=== PATIENT | female | born 1955 | race Caucasian/White ===

== ENCOUNTER → 2021-09-21 14:08 | Outpatient (CLI) | payer MEDICARE, OTHER, SELFPAY ==
[2021-09-21 14:44] LABS: Appearance Urine UA CLEAR; Bilirubin Urine UA NEGATIVE (NEGATIVE); Color Urine UA YELLOW; Glucose Urine UA NEGATIVE (Negative); Ketones Urine UA NEGATIVE (NEGATIVE); Leukocyte Esterase Urine UA NEGATIVE (NEGATIVE); Nitrite Urine UA NEGATIVE (Negative); Occult Blood Urine UA NEGATIVE (Negative); Protein Urine UA NEGATIVE (Negative); Specific Gravity Urine UA 1.015 (1.000-1.035); Urobilinogen Urine UA 0.2 E.U./dL (0.2)
[2021-09-21 14:49] LABS: Bacteria Urine None Seen; Culture Indicated Urine Cult Not Indicated; RBC Urine None Seen (0-5/HPF); Urine Comments Microscopic Normal; WBC Urine None Seen (0-5/HPF)
[2021-09-21 15:06] LABS: Add Manual Diff / Slide Review NO; Basophils Absolute Auto 100 /uL (0-100); Basophils Percent Auto 0.7 % (0-2); Eosinophils Absolute Auto 100 /uL (0-450); Eosinophils Percent Auto 1.2 % (2-4); Hemoglobin 13.6 g/dL (12.0-16.0); Lymphocytes Absolute Auto 1400 /uL (1100-4500); Lymphocytes Percent Auto 15.6 % (25-40); Mean Corpuscular HGB Conc 34.1 % (30-36); Mean Corpuscular Hemoglobin 31.2 PG (26-34); Mean Corpuscular Volume 91.6 fL (80-100); Monocytes Absolute Auto 400 /uL (0-900); Monocytes Percent Auto 4.2 % (3-14); Neutrophils Absolute Auto 6900 /uL (1500-7000); Neutrophils Percent Auto 78.3 % (50-75); Platelet Count 291 X10^3/uL (150-400); Red Blood Cell Count 4.36 X10^6/uL (4.0-5.2); Red Cell Distribution Width 13.4 % (11.6-14.8); White Blood Cell Count 8.9 X10^3/uL (4.5-11.0)
[2021-09-21 15:19] LABS: Hemoglobin A1C% w Est Avg Glu 4.9 % (4.0-6.0)
[2021-09-21 15:45] LABS: BUN Creatinine Ratio 12.4 (6-22); Blood Urea Nitrogen 12 mg/dL (7-17); Calcium 9.7 mg/dL (8.4-10.2); Carbon Dioxide 31 mmol/L (22-32); Chloride 104 mmol/L (98-107); Estimated Glomerular Filt Rate 57.6 mL/min (>60); Glucose 106 mg/dL (80-110); HEMOLYSIS < 15 (0-50); Potassium 4.7 mmol/L (3.4-5.1); Sodium 141 mmol/L (137-145)
== END ==
PROVIDERS: PCP Physician Assistant Medical; Referring Provider Orthopaedic Surgery Orthopaedic Surgery of the Spine; Visit Provider Orthopaedic Surgery Orthopaedic Surgery of the Spine
DX: Z01.818 Encounter for other preprocedural examination (principal); Z01.812 Encounter for preprocedural laboratory examination; R73.9 Hyperglycemia, unspecified; N39.0 Urinary tract infection, site not specified
CPT/HCPCS: 36415; 80048; 81001; 83036; 85025; 93005

== ENCOUNTER → 2021-10-15 09:29 | Outpatient (CLI) | payer MEDICARE, OTHER, SELFPAY ==
[2021-10-15 12:03] LABS: COVID19 -Nasal RAPID Negative (Negative)
== END ==
PROVIDERS: PCP Physician Assistant Medical; Visit Provider Nurse Practitioner Family
DX: Z20.822 Contact with and (suspected) exposure to COVID-19 (principal)
CPT/HCPCS: 87635

== ENCOUNTER 2021-10-18 09:17 | Inpatient (IN) | payer MEDICARE, OTHER, SELFPAY ==
[2021-10-05 09:37] VITALS: BMI 22.1
[2021-10-18] VITALS (12 sets, daily range): BP systolic 118–156; BP diastolic 66–111; PULSE 70–91; RESP 11–19; TEMP 36.3–37.7; O2SAT 92–100; BMI 22.1
[2021-10-18] MEDS: ACETAMINOPHEN 325 MG TABLET 975 MG PO (10:05)
[2021-10-18] MEDS: LACTATED RINGERS 1,000 ML 42 ML IV ×2 (10:06→14:37)
[2021-10-18] MEDS: CEFAZOLIN 2 GM/20 ML SYRINGE IV (11:48)
--- NOTE | 2021-10-18 12:24 | SUR.OPER ---
Prone on spine table, head in foam head support, padded chest and pelvic supports, gel pad at knees, lower legs supported by pillows; nipples, genitalia and toes free of pressure, arms secured on foam padded arm boards at <90 degrees abduction. Tape over blanket at thigh secured to table.
[2021-10-18] MEDS: BUPIVACAINE LIPOSOME 266 MG/20 ML VIAL INJ (12:32)
[2021-10-18] MEDS: BUPIVACAINE 0.25% (PF) 30 ML, EPINEPHrine 0.3 MG INJ (12:33)
--- NOTE | 2021-10-18 14:21 | PM.OP.1 ---
Operative Date/Time/Diagnoses Date of procedure: 10/18/21 Time of procedure: 12:00 Pre-op diagnosis: 1. L4-5 spinal stenosis with neurogenic claudication 2. L4-5 spondylolisthesis Post-op diagnosis: same Procedure & Clinicians Procedure: 1. L4-5 Postero-lateral and posterior interbody fusion 2. L4-5 interbody cage placement. 3. L4-5 decompressive laminectomy with bilateral facetecomies 4. L4-5 Posterior non-segmental instrumentation 5. [place] of bone marrow from iliac crest 6. Utilization of microsurgical technique and operating microscope Same procedure as scheduled: Yes Indications: Patient has been having chronic back pain and worsening lumbar radiculopathy. Patient failed multiple conservative management with worsening pain weakness and numbness in her lower extremity. Patient has been having difficulty performing activity of daily living. After discussing risks benefits of treatment options, patient elected proceed with surgery. Surgeon: Chapo Bell Account Receivable Associate: Anayeli Lewis Click Yes if Unassisted: Yes Anesthesia Type: General Operative Notes Closure Type: primary Specimen(s): none sent Prosthetic devices, grafts, tissues, transplants, or devices: Globus revolve screws, Rise cage Estimated Blood Loss (mL): 50 Blood products transfused: none Procedure in detail: Patient was seen in the preoperative area. Risks and benefits of the surgery was discussed with the patient. Informed consent was obtained from the patient and placed in the chart. Surgical site was marked. Patient was taken to the operative room. General anesthesia was administered. Prophylactic antibiotic was given to the patient less than 30 min before the incision was made. Patient was placed into a prone position on the [place] table. Patient's back was then prepped and draped in the sterile fashion. Time-out was performed at this time. Using AP and lateral C-arm imaging the interval between L4-5 was identified and marked on patient's back. A 2 inch incision 2 in from midline was made on the left side first. The fascia was incised in line with skin incision. Globus MARS retractors was placed inside the incision and docked onto the L4 lamina. Using microsurgical technique and operating microscope, a L4 laminectomy and L4-5 facetectomy was performed using a [place] rongeur. The disc space at L4-5 was identified. And a total diskectomy was performed at L4-5 level. The endplates were decorticated using a rasp and shaver. The total diskectomy and decortication was performed at L4-5 level in order to to accomplish a L4-5 fusion. The local bone from the laminectomy and facetectomy was saved for local bone grafting. After the total diskectomy and decortication was completed, Trifecta bone graft material was combined with local bone that was harvested earlier. At this time, a separate skin is incision was made over the iliac crest. A Jamshidi needle was inserted into the iliac crest through a separate skin incision. 5 cc of bone marrow aspiration was obtained through the separate skin incision using a Jamshidi needle from the iliac crest. The bone marrow aspiration was combined with local bone and the Trifecta bone grafting material. The bone grafting material was placed into the L4-5 interbody space along with a expandable cage. The cage was expanded to its maximum height using the torque limiting screwdriver. At this time a mirror image incision was made on the right side. The fascia was incised in line with the skin incision. Globus MARS retractor was inserted and docked onto the L4-5 posterolateral gutter. Using the power drill, posterior-lateral decortication was performed at L4-5 level until bleeding cortical bone was identified. The remaining bone grafting material was placed into the L4-5 posterior lateral gutter he order to accomplish posterolateral fusion at the L4-5 level. Using the double C-arm technique, pedicle screws were placed into the L4-5 pedicles bilaterally. This was done by placing the Jamshidi needle into the pedicles, then placing the guidewires over the Jamshidi needle, and finally placing the cannulated screws over the guidewires bilaterally. After the pedicle screws were placed, 2 titanium rods was locked into the heads of the pedicle screws using locking caps and torque limiting screwdriver. After all the hardware was placed, and confirmed with AP and lateral C-arm imaging, the wound was then irrigated with sterile normal saline and packed with Ray-Dario gauze for 3 min to accomplish hemostasis. After the gauze was removed the deep fascia was closed with #1 Vicryl suture. The subcutaneous layer was closed with 2-0 Vicryl. The skin was closed with skin farshad. Patient tolerated the procedure well. There were no complications. Complications: none Post-operative Condition: stable Disposition: PACU Plan for aftercare: Admit to inpatient hospital
[2021-10-18] MEDS: OXYCODONE IR 5 MG TABLET PO (15:15)
[2021-10-18] MEDS: hydrOXYzine pamoate 25 MG CAPSULE PO ×2 (15:16→20:39)
[2021-10-18] MEDS: SODIUM CHLORIDE 0.9% 1,000 ML 100 ML IV (16:12)
[2021-10-18] MEDS: DOCUSATE 100 MG CAPSULE PO (20:39)
[2021-10-18] MEDS: OXYCODONE IR 5 MG TABLET 10 MG PO (20:39)
[2021-10-18] MEDS: SENNOSIDES 8.6 MG TABLET 17.2 MG PO (20:39)
[2021-10-18] MEDS: CEFAZOLIN 2 GM/20 ML SYRINGE 1 GM IV (20:39)
[2021-10-19] MEDS: SODIUM CHLORIDE 0.9% 1,000 ML 100 ML IV (02:09)
[2021-10-19] MEDS: CEFAZOLIN 2 GM/20 ML SYRINGE 1 GM IV (03:52)
[2021-10-19] MEDS: OXYCODONE IR 5 MG TABLET 10 MG PO ×3 (04:01→11:53)
[2021-10-19 06:10] VITALS: BP 136/73; PULSE 82; RESP 18; TEMP 36.8; O2SAT 98
[2021-10-19] MEDS: hydrOXYzine pamoate 25 MG CAPSULE PO (06:19)
--- NOTE | 2021-10-19 07:29 | P.PN_ITS ---
Subjective Subjective Date Patient Seen: 10/19/21 Time Patient Seen: 07:29 Interval history: Pain is mild at rest. Patient has severe pain with movement. She has not yet had physical therapy. She does have her granddaughter home to assist her. Denies fever or chills. No nausea or vomiting. Exam Vital Signs (past 8 hours): - 10/19/21 06:10 Temperature 98.2 F Pulse Rate 82 Respiratory Rate 18 Blood Pressure 136/73 Pulse Oximetry 98 Oxygen Delivery Method Room Air Oxygen Flow Rate 0 Narrative Exam Narrative: 65-year-old female resting comfortably in bed in no apparent distress. Motor functions intact bilateral lower extremities. Sensation grossly intact to light touch bilateral lower extremities. [facility] Medical History Sciatica Spinal stenosis Spondylolisthesis Surgical History History of bilateral tubal ligation History of lumbar fusion (2000) Hx of arthroscopy of left knee Hx of arthroscopy of right knee Social History household members: children Smoking Status: Never smoker alcohol intake: current Assessment & Plan Post-op Postoperative Procedures: Procedures Operation Date: 10/18/21 10:45 Actual Procedure Side Surgeon p L4-5 TLIF Chapo Bell MD Postoperative day: 1 Postoperative status: marginal pain control Postoperative plan narrative: Mobilize with physical therapy. Limit bending, twisting, lifting Multimodal pain management Disposition possible home today versus tomorrow Quality VTE Deep Vein Thrombosis/Pulmonary Embolism Present on Admission: No
[2021-10-19 07:41] VITALS: BP 128/70; PULSE 69; RESP 16; TEMP 36.6; O2SAT 100
[2021-10-19] MEDS: LORATADINE 10 MG TABLET PO (08:49)
[2021-10-19] MEDS: DOCUSATE 100 MG CAPSULE PO (08:49)
--- NOTE | 2021-10-19 09:05 | CM.DANOTE ---
DCP: Case received, EMR reviewed and met with patient. Introduced self and role. Was able to obtain information regarding patient's baseline activity status prior to surgery, as well as her current living situation. DCP assessment completed with information currently available. Patient is a 65 year old female who admitted yesterday morning to the care of the orthopedic team. PCP: Dr. Caba. Payer: confirmed: Medicare/[employer]. Patient came to the hospital via private vehicle for a surgical procedure. Patient had translaminar interbody fusion/Laminotomy. Patient has history of chronic back issues, did have L5-S1 surgery in 2000. Patient has history of spinal stenosis. Met with patient in her room. She is alert and oriented, and she was sitting up in her chair. Confirmed with patient that she resides outside of [place], and her grand daughter, Dominique, will be staying with her for assistance. Patient is active at her baseline, goes to the gym to work out. She drives, and uses no DME equipment. P: DCP to continue to follow for any needs. She will be working with P.T/O.T. today. She should be able to go home when she is deemed medically stable. Park Mcghee RN/Director Long Term Care Discharge Planning/Care Management CM Discharge Assessment Start: 10/19/21 09:03 Freq: Status: Active Protocol: Document 10/19/21 09:03 (Rec: 10/19/21 09:05 [id number]) Discharge Planning Assessment Assigned Mobile Disc Jockey Park Mcghee RN/Director Long Term Care Advance Directives? No History Provided By Patient,Medical Record Prior Living Arrangements House Household Members children Comment Patient's Dominique min, is staying with her. Type of transporation used prior to Drives own vehicle admit Independent with ADL's Yes Is patient alert and oriented? Yes Caregiver for Another No Barriers to Discharge No Discharge Plan Home Transportation Arrangement Family Referrals Initiated None needed Whiteboard Updated in Patient Room with Yes name and ext. # of Mobile Disc Jockey Review Status In Process Next Review Type Continued Stay Review Pre-Anesthesia Assessment Start: 10/05/21 09:37 Freq: Status: Active Protocol: Document 10/05/21 09:37 CAB (Rec: 10/05/21 10:24 CAB [id number]) Pre-Anesthesia Assessment Patient Information Reviewed Via Phone Assessment Assessment Completed With Patient H&P Completed Within 30 Days Yes Diagnostic Results BMP/CMP,CBC,EKG,Urinalysis Comment Labs/EKG @ 09/21/21, COVID screen @ 10/15/21 Primary Care Provider None Seen Specialist in Last 12 Months Yes Specialist Seen Orthopedist Primary Language Thai Convenience Store Manager Required No Height 5 ft 6 in Weight 137 lb Body Mass Index (BMI) 22.1 Hearing Ability Normal Visual Assist Magnifying Glass Dentition Type Teeth, Natural Present Barriers to Learning None Hx Anesthesia Reactions No Hx Family Anesthesia Reaction No Hx Malignant Hyperthermia No Hx Blood Transfusions No Anesthesia Review Requested No alcohol intake current alcohol intake frequency 0-2 drinks per day Smoking Status Never smoker Substance Use Type marijuana Comment Pt advised not to smoke marijuana 24 hours prior to surgery Pain Present Pain Reported Musculoskeletal Symptoms Abnormal Gait,Back Pain, Difficulty Walking,Radiating Pain into Limb History of Falling (Recent or History of No ) Patient is completely paralyzed or No completely immobile Mental Status Oriented to own ability Is patient on oxygen? No Does patient have CHILEL/SOB No Hx Sleep Apnea No Currently Taking a Beta Rolando No Hx Chest Pain No Hx SOB No Hx Syncope or Dizziness No Anti-Coagulant Therapy No Has a Cable Assembler No Cardiac Testing No Hx Pacemaker/ICD No Pacemaker Rep Required? No Cardiac Clearance Received Not Applicable Diet Type At Home Regular dysphagia No Gastrointestinal Symptoms Constipation Urinary Catheter Present No Hx Urinary Self Catheterization No Diabetes No HgbA1C 4.9 Date 09/21/21 Patient No Lactating No Hx Drug Resistant Organism No Presence of External or Internal Medical Yes: Lumbar fusion w/cage Devices Have you had any close contact with No someone diagnosed with COVID-19? Received a COVID vaccine? No Marital Status / Lives With children Prior Living Arrangements House Number of Floors (Floors) One Floor Support System Child/Children Does the Patient Have Assistance After Yes Surgery Patient Discharge Plan Description Return Home Comment Pt advised 1 day length of stay per surgeon Feels Safe in Current Environment Yes Been Physically Hurt or Threatened By a No Person in Current Environment Do you have thoughts of harming yourself None or others? Are you currently considering suicide? No Do you have a plan to hurt yourself or No Plan others? Do You Have Any Spiritual Beliefs That No May Affect Your HC Choices? Do You Have Any Cultural Practices That No May Affect Your HC Choices? Comment Liam Who Can We Speak to About Patient's Care Family, friends Identifying Code for Release of Patient Declines to issue Information Health Care Proxy/Next of Kin Yolis (Daughter) Health Care Proxy Emergency Contact Name Yolis (Daughter) Emergency Contact Advance Directives? No Power of Web Content Writer No PAC Instructions Durable medical equipment, Medications to take/avoid, Nasal antibiotic,No ETOH/ petroleum product on skin DOS, NPO,Post-op transportation,Pre -surgical wash,Sturdy shoes/ comfortable clothes,Do not bring valuables and remove jewelry
--- NOTE | 2021-10-19 09:40 | PT.IIE ---
Current Diagnoses Spondylolisthesis, lumbar region (10/18/21) Spinal stenosis, lumbar region with neurogenic claudication (10/18/21) Arthrodesis status (10/18/21) Surgery Performed Operation Date: 10/18/21 10:45 Actual Procedures p L4-5 TLIF - Chapo Bell MD Medical History (Last Reviewed 10/19/21 @ 07:30 by Saad Serrano PA-C) Sciatica Spinal stenosis Spondylolisthesis Physical Therapy Inpatient Evaluation/Re-Eval M1 PT/OT-IP Prior Functional Status Start: 10/19/21 11:52 Freq: NEEDED Status: Active Protocol: Document 10/19/21 09:40 AB (Rec: 10/19/21 12:04 AB [email or web address]) Medical Review Prior Functional Status Medical History Reviewed Yes Communication able to make needs known Mobility and Gait pt stated that she is independent with all mobilities and ambulation without AD Social History Household Members children Living Arrangements House Number of Floors (Floors) Two Floors Number of Stairs To Enter/Railing? pt stays on main level of the house 4 steps without rails to enter the house Home Environment Standard Height Toilet,Tub/ Shower Home Equipment Front Wheel Walker,Straight Cane,Raised Toilet Seat w/ Armrests Additional Social History Comment pt stated that her granddaugther and granddaugther's BF can assist her at home when they are around but will mostly be by herself when they go to work M2 PT-IP Current Condition Start: 10/19/21 11:52 Freq: NEEDED Status: Active Protocol: Document 10/19/21 09:40 AB (Rec: 10/19/21 12:04 AB [email or web address]) Physical Therapy Current Condition Current Condition Evaluation Date 10/19/21 Treatment Diagnosis s/p L4-5 TLIF; difficulty in walking Onset Date 10/18/21 M3 PT-IP Subjective Start: 10/19/21 11:52 Freq: NEEDED Status: Active Protocol: Document 10/19/21 09:40 AB (Rec: 10/19/21 12:04 AB [email or web address]) Subjective Physical Therapy Visit Type Type Initial Evaluation Visit Start Time 09:40 Visit Stop Time 10:10 Total Visit Minutes 30 Number of EAR MOLD LABORATORY TECHNICIAN Visits 0 Physical Therapy Visit Comments Patient Comments agreeable to do PT Therapy Pain Assessment Pain When Pain Assessed At Rest Pain Present Pain Present Pain Reported Location back Intensity 2 Scale Used Numeric (0 - 10) Pain Management Techniques Apply Cold,Distraction, Modification of Treatment,Re- positioning,Timing of Activity with Medications M4 PT-IP Mobility and Gait Start: 10/19/21 11:52 Freq: NEEDED Status: Active Protocol: Document 10/19/21 09:40 AB (Rec: 10/19/21 12:04 AB [id number]) PT-Bed Mobility Assessment Rolling Type of Rolling Log Rolling Level of Assist Standby Assistance Supine to Sit Supine to Sit Standby Assistance PT-Transfer Assessment Sit to and From Stand Sit to and from Stand Standby Assistance,1 Person Assistance Equipment Transfer Assistive Device Gait Belt,Front Wheeled Walker Orthotic/Prosthetic Devices or Brace: No Transfers Transfer Destination Bed Transfer Technique ambulated Transfer Ability Level of Assist Standby Assistance,Contact Guard Assistance,1 Person Assistance,Use of Upper Extremities Comments Mobility Comments educated pt on back precautions and log roll bed mobility. pt completed supine to sit SBA. completed sit to stand CGA and ambulated in room ~ 30 ft using FWW CGA and sat on chair. educated pt on sit to stand technique. completed sit to stand SBA and ambulated in the hallway ~150 ft using FWW SBA. completed up/down stairs using SPC CGA. repeated x 2. pt ambulated back to the room using FWW SBA . agreed to sit on chair. positioned on chair. call light and table placed within reach. Gait Assessment Gait Gait Assistance Required: Standby Assistance,Contact Guard Assist Distance (Feet) 150 Able to Maintain Weight Bearing Status Yes During Gait Assistive Devices Assistive Device Gait Belt,Front Wheeled Walker Orthotic/Prosthetic Devices or Brace: No Gait Deviations General Gait Pattern Antalgic,Decreased Stride Length,Decreased Feet Clearance Factors Limiting Gait Function Factors Limiting Gait Function Decreased Activity Tolerance, Decreased Strength,Limited Range of Motion,Pain,Poor Balance Stair Climbing Assessment Evaluation Level of Assist On Stairs Contact Guard Assistance Devices Stair Climbing Assistive Devices Straight Cane Technique/Endurance Stair Climbing Direction Ascend and Descend Stair Climbing Technique Step to Step Number of Steps Climbed 3 Query Text: Stair Climbing Set # Repetitions (reps) 2 PT-Balance Assessment Sitting Balance and Reactions Static Sitting Balance Ability Good Dynamic Sitting Balance Ability Good Standing Balance and Reactions Static Standing Balance Ability Fair Dynamic Standing Balance Ability Fair Device Used FWW M5 PT-IP Objective Assessments Start: 10/19/21 11:52 Freq: NEEDED Status: Active Protocol: Document 10/19/21 09:40 AB (Rec: 10/19/21 12:04 AB [id number]) Orientation Orientation/Cognition Level of Alertness Alert Orientation Name,Age,Birthday,Month,Date, Year,Day of Week,Place, Situation Language Function Ability No Deficits Noted Safety Awareness Understands Safety Issues Memory Description No Deficits Noted Gross Range of Motion Lower Extremity ROM Assessment Within Functional Limits Strength Lower Extremity Strength Assessment Within Functional Limits Sensation Assessment Sensation Gross Sensation WNL Muscle Tone Muscle Tone WNL Yes M6 PT-IP Treatment Start: 10/19/21 11:52 Freq: NEEDED Status: Active Protocol: Document 10/19/21 09:40 AB (Rec: 10/19/21 12:04 AB [id number]) Physical Therapy Treatment Education Education Provided Precautions,Weight Bearing Status,Post-Op Packet,Safety M7 PT-IP Assessment and Plan Start: 10/19/21 11:52 Freq: NEEDED Status: Active Protocol: Document 10/19/21 09:40 AB (Rec: 10/19/21 12:04 AB [email or web address]) PT Summary Assessment and Plan Potential Rehabilitation Potential Good Status of Condition at Evaluation Stable Summary Impairments Pain,ROM,Strength,Balance, Coordination,Bed Mobility, Transfers,Gait,Activity Tolerance Assessment Summary pt requiring SBA to CGA with mobiltiy using FWW. pt plans to go home and will have her grand daughter to assist her when needed. pt may go home when medically stable. Goals Bed Mobility Goal Independent Transfer Goal Independent,Front Wheeled Walker Gait Goal Independent,Front Wheel Walker Gait Distance 300 Other Goals up/down 4 steps using SPC mod I Days to Meet Goals 5 Frequency of Treatment Frequency Of Treatment Twice a Day Treatment Plan Physical Therapy Treatment Plan Bed Mobility Training,Transfer Training,Gait Training, Therapeutic Exercise,Balance Retraining,Post Op Education, Discharge Planning,Hot or Cold Pack,Neuromuscular Re-ed, Coordination Retraining,Manual Therapy Precautions Lumbar Precautions Log Roll,No Twisting,Limit Bending,Lifting Restriction of 10 lbs,Gait Belt above Incisional Area Recommendations To Nursing Amount of Assist Needed 1 Person Assist Discharge Recommendations PT Discharge Recommendations Home with Assistance Transportation Needs at Discharge Private Vehicle
--- NOTE | 2021-10-19 09:59 | PC.NURSE ---
Assess- Patients dressing to her lower back is cdi with some old drainage that is not leaking. She is a one person assist up to the bathroom and moving well. Given 10mg of oxycodone for pain of 6/10. Working with physical therapy now and ambulating in the halls. Pain medication has been effective for discomfort.
--- NOTE | 2021-10-19 11:26 | OT.IP.EVAL ---
Current Diagnoses Spondylolisthesis, lumbar region (10/18/21) Spinal stenosis, lumbar region with neurogenic claudication (10/18/21) Arthrodesis status (10/18/21) Surgery Performed Operation Date: 10/18/21 10:45 Actual Procedures p L4-5 TLIF - Chapo Bell MD Past Medical History (Last Reviewed 10/19/21 @ 07:30 by Saad Serrano PA-C) History of bilateral tubal ligation History of lumbar fusion (2000) Hx of arthroscopy of left knee Hx of arthroscopy of right knee Sciatica Spinal stenosis Spondylolisthesis Surgical History (Last Reviewed 10/19/21 @ 07:30 by Saad Serrano PA-C) History of bilateral tubal ligation History of lumbar fusion (2000) Hx of arthroscopy of left knee Hx of arthroscopy of right knee Occupational Therapy Inpatient Evaluation/Re-Eval M1 PT/OT-IP Prior Functional Status Start: 10/19/21 11:52 Freq: NEEDED Status: Active Protocol: Document 10/19/21 10:45 [facility] (Rec: 10/19/21 13:10 [facility] [id number]) Medical Review Prior Functional Status Medical History Reviewed Yes Communication able to make needs known Mobility and Gait pt stated that she is independent with all mobilities and ambulation without AD Activities of Daily Living and IADL's Pt states due to her pain that needing more time to complete ADl's and IADl needs. Social History Household Members children Living Arrangements House Number of Floors (Floors) Two Floors Number of Stairs To Enter/Railing? pt stays on main level of the house 4 steps without rails to enter the house Home Environment Standard Height Toilet,Tub/ Shower Home Equipment Front Wheel Walker,Straight Cane,Raised Toilet Seat w/ Armrests Additional Social History Comment pt stated that her grand daugther and grand daugther's BF can assist her at home when they are around but will mostly by herself when they go to work M2 OT-IP Current Condition Start: 10/19/21 12:47 Freq: Status: Active Protocol: Document 10/19/21 10:45 [facility] (Rec: 10/19/21 13:10 [facility] [id number]) Occupational Therapy Current Condition Current Condition Evaluation Date 10/19/21 Treatment Diagnosis S/p L4-5 TLIF Diagnosis Onset Date 10/18/21 Post Operative Precautions Lumbar Precautions Log Roll,No Twisting,Limit Bending,Lifting Restriction of 10 lbs,Gait Belt above Incisional Area M3 OT- IP Subjective and Pain Start: 10/19/21 12:47 Freq: Status: Active Protocol: Document 10/19/21 10:45 [facility] (Rec: 10/19/21 13:10 [facility] [id number]) OT- Subjective Occupational Therapy Visit Type Type Initial Evaluation Visit Start Time 10:45 Visit Stop Time 11:26 Total Visit Minutes 41 Occupational Therapy Visit Comments Patient Comments Pt agreed to work with OT and also wanting to get up to shower. Patient/Caregiver Goals TO go home. OT Pain Assessment Pain When Pain Assessed At Rest Pain Present Pain Present Pain Reported Location back Intensity 1 Scale Used Numeric (0 - 10) M4 OT- IP ADL's Start: 10/19/21 12:47 Freq: Status: Active Protocol: Document 10/19/21 10:45 [facility] (Rec: 10/19/21 13:10 [facility] [id number]) OT [id number] General Evaluation Self-Feeding Ability Independent OT ADL-Grooming General Evaluation Grooming Ability Standby Assistance Areas Needing Assistance Retrieving/Set-up of Grooming Items OT ADL-Oral Care General Eval Oral Care Ability Standby Assistance Areas of Assistance Retrieving/Set-Up of Items Comments Oral Care Comments Educated best to spit into a cup to best follow her back precautions. OT ADL-Dressing General Eval Lower Body Dressing Ability Standby Assistance Comments OT Dressing Comments Pt able to safely cross her legs to be able to follow back precautions needs. OT ADL-Toileting General Evaluation Toileting Ability Standby Assistance OT ADL-Bathing Bathing Type Bathing Type Shower General Evaluation Bathing Ability Minimal Assistance Areas Needing Assistance Wash/Dry Back Devices Bathing Equipment Hand Held Shower Sprayer,Grab Bars Comments OT Bathing Comments Pt just needing assist to wash her back. Pt agreed best to get a shower chair for safety and hand held shower spray. M5 OT- IP IADL's Start: 10/19/21 12:47 Freq: Status: Active Protocol: Document 10/19/21 10:45 [facility] (Rec: 10/19/21 13:10 [facility] [id number]) OT-Instrumental Activities of Daily Living Deficits IADL Deficits Identified Deficits Home Safety Awareness Awareness of Need for Assistance at Home Good Awareness Ability to Problem Solve Emergency Able to Problem Solve Situations Medication Management Medication Management No Deficits Identified Money Management Money Management No Deficits Identified Meal Preparation Meal Preparation Comments Educated pt to have someone assist with meal prep as at this time she will not be able to carry items. Laminating Machine Operator Helper Laminating Machine Operator Helper Comments Pt to have assist. M6 OT- IP Functional Cognition Start: 10/19/21 12:47 Freq: Status: Active Protocol: Document 10/19/21 10:45 [facility] (Rec: 10/19/21 13:10 [facility] [id number]) Cognitive Factors Limiting Selfcare Function Cognitive Ability Level of Alertness Alert Patient Orientation Name,Age,Birthday,Month,Date, Year,Day of Week,Place, Situation Attention Span Ability Capable of Focused Attention, Capable of Sustained Attention Ability to Follow Commands Able to Follow Multi-Step Commands Memory Description No Deficits Noted Safety Awareness No Deficits Noted Problem Solving Ability No deficits Noted Cognitive Comments Cognitive Assessment Comments Pt intact cognitively. OT- Vision and Hearing OT- Hearing Assessment OT- Hearing Assessment WFL M7 OT- IP Mobility and Balance Start: 10/19/21 12:47 Freq: Status: Active Protocol: Document 10/19/21 10:45 [facility] (Rec: 10/19/21 13:10 [facility] [id number]) OT-Transfer Assessment Sit to and From Stand Sit to and from Stand Standby Assistance Transfers Transfer Ability Standby Assistance Technique Transfer Destination Chair,Shower Stall,Toilet Transfer Technique Stand Step Pivot Devices Transfer Assistive Devices Gait Belt,Front Wheeled Walker Comments Mobility Comments SBA with FWW in the room. OT- Balance Assessment Sitting Balance and Reactions Static Sitting Balance Ability Normal Dynamic Sitting Balance Ability Good Standing Balance and Reactions Static Standing Balance Ability Good M8 OT- IP Objective Assessments Start: 10/19/21 12:47 Freq: Status: Active Protocol: Document 10/19/21 10:45 [facility] (Rec: 10/19/21 13:10 [facility] [id number]) OT-Muscle Tone Assessment Muscle Tone WNL Yes M9 OT- IP Assessment and Plan Start: 10/19/21 12:47 Freq: Status: Active Protocol: Document 10/19/21 10:45 [facility] (Rec: 10/19/21 13:10 [facility] [id number]) OT Summary Assessment and Plan Potential Rehabilitation Potential Good Analytic Complexity at Evaluation Low Summary OT Impairments Pain,Balance,Functional Mobility,Bathing Progress Towards Goals Progressing Toward Goals Assessment Summary Pt low complexity and able to safely follow her back precautions for her Adl and mobility needs. Pt will needing assist for showers and IADl needs. Pt's grand daughter to assist when not at work and pt also able to call her neighbors to assist as needed. Goals Dressing Goal Independent Toileting Goal Independent Bathing Goal Independent Toilet Transfer Goal Independent Shower Transfer Goal Independent Patient/Caregiver Education Goal Demonstrate Post-Op Precautions Days to Meet Goals 1 Frequency of Treatment Frequency Of Treatment Once a Day Treatment Plan OT Treatment Plan ADL Training,Functional Mobility,Patient/Family Education,Discharge Planning Discharge Recommendations OT Discharge Recommendations Home with Assistance Home Equipment Needs shower chair, hand held shower spray Transportation Needs at Discharge Private Vehicle
--- NOTE | 2021-10-19 12:07 | P.DS_ITS ---
History of Present Illness History of Present Illness Date Patient Seen: 10/19/21 Time Patient Seen: 12:07 Chief complaint: Translaminar Interbody Fusion/Laminotomy *OPB* Narrative: See progress note Discharge Providers Provider Date of admission: 10/18/21 09:17 Discharge Date: 10/19/21 Primary care physician: Keyon Caba DC Consults: 10/18/21 15:57 Consult to Occupational Therapy Evaluate & Treat Comment: Physician Instructions: Evaluate and treat Consult to Physical Therapy Evaluate & Treat Comment: Physician Instructions: Evaluate and Treat Discharge provider: Saad Serrano PA-C Summary Hospital Course Discharge Diagnosis: 1. L4-5 spinal stenosis with neurogenic claudication 2. L4-5 spondylolisthesis Hospital Course: . L4-5 Postero-lateral and posterior interbody fusion 2. L4-5 interbody cage placement. 3. L4-5 decompressive laminectomy with bilateral facetecomies 4. L4-5 Posterior non-segmental instrumentation 5. [place] of bone marrow from iliac crest 6. Utilization of microsurgical technique and operating microscope Same procedure as scheduled: Yes Indications: Patient has been having chronic back pain and worsening lumbar radiculopathy. Patient failed multiple conservative management with worsening pain weakness and numbness in her lower extremity.? Patient has been having difficulty performing activity of daily living.? After discussing risks benefits of treatment options, patient elected proceed with surgery. Surgeon: Chapo Bell Sports Photographer: Anayeli Lewis Click Yes if Unassisted: Yes Anesthesia Type: General Operative Notes Closure Type: primary Specimen(s): none sent Prosthetic devices, grafts, tissues, transplants, or devices: Globus revolve screws, Rise cage Estimated Blood Loss (mL): 50 Blood products transfused: none Patient admitted to the hospital for the above-mentioned procedure. Patient consented to the same. Patient taken operating room on October 18, 2021. Patient back in her room recovering well as in stable condition. Patient will be discharged home today in stable condition. Exam Vital Signs (past 8 hours): - 10/19/21 06:10 10/19/21 07:41 Temperature 98.2 F 97.9 F Pulse Rate 82 69 Respiratory Rate 18 16 Blood Pressure 136/73 128/70 Pulse Oximetry 98 100 Oxygen Delivery Method Room Air Oxygen Flow Rate 0 Narrative Exam Narrative: See progress note PFSH Medical History Sciatica Spinal stenosis Spondylolisthesis Surgical History History of bilateral tubal ligation History of lumbar fusion (2000) Hx of arthroscopy of left knee Hx of arthroscopy of right knee Social History household members: children Smoking Status: Never smoker alcohol intake: current Discharge Assessment & Plan Assessment and Plan Assessment: Patient progressing as expected Plan of Treatment: Discharge home today in stable condition Discharge Plan Discharge Plan Patient Disposition: Home Discharge orders & Medications Prescriptions: New acetaminophen 325 mg Tablet 650 mg PO Q6HR PRN (Reason: Pain, Mild (1-3)) Qty: 60 0RF docusate sodium 100 mg Capsule 100 mg PO BID Qty: 20 0RF oxycodone 5 mg Tablet 10 mg PO Q3HR PRN (Reason: Pain, Severe (7-10)) Qty: 60 0RF hydroxyzine pamoate 25 mg Capsule 25 mg PO Q4HR PRN (Reason: Nausea And Vomiting) Qty: 20 0RF Continued cetirizine 10 mg Tablet 10 mg PO DAILY 0RF Discontinued naproxen sodium [Aleve] 220 mg Capsule 220 mg PO BID PRN (Reason: Pain) 0RF Follow up/Referrals: Chapo Bell MD [Physician] - (2 weeks) Keyon Caba DC [Primary Care Provider] - Diet/Activity/Treatments Diet: Diet as Tolerated Activity: Limit bending, lifting, twisting Cold/Heat Therapy: Apply ice to back as needed Skin/Wound/Dressing Care Report to your healthcare provider any signs of infection, such as:: chills, fever, increased pain, unusual drainage and unusual redness Dressing: Keep dressing clean and dry Visit Report/Discharge Packet Instructions: DI for Heart Failure, DI for Prescription Opioid Use, DI for Transforaminal Lumbar Interbody Fusion Stand Alone Forms: Surgery Discharge Discharge Data Primary Care Provider: Keyon Caba VTE Deep Vein Thrombosis/Pulmonary Embolism Present on Admission: No
== END 2021-10-19 14:28 | disposition home or self-care (01) | DRG 455 ==
LOC: OR 09:19 → AC 09:20
PROVIDERS: Admitting Provider Orthopaedic Surgery Orthopaedic Surgery of the Spine; PCP Chiropractor; Referring Provider Orthopaedic Surgery Orthopaedic Surgery of the Spine; Visit Provider Orthopaedic Surgery Orthopaedic Surgery of the Spine
PROC: 0SG00AJ Fusion of Lumbar Vertebral Joint with Interbody Fusion Device, Posterior Approach, Anterior Column, Open Approach (ICD-10-PCS; principal; 2021-10-18 10:45)
DX: M51.36 Other intervertebral disc degeneration, lumbar region (principal); M48.061 Spinal stenosis, lumbar region without neurogenic claudication; M43.16 Spondylolisthesis, lumbar region; M54.16 Radiculopathy, lumbar region; Z98.1 Arthrodesis status; Z20.822 Contact with and (suspected) exposure to COVID-19
CPT/HCPCS: 87635; 97161; 97165; 97535; C1776; C9803; C9290; J0171; J0330; J0690; J1100; J1170; J2250; J2405; J2704; J3010